=== PATIENT | female | born 1985 | race Hispanic/Latino ===

== ENCOUNTER 2018-06-14 09:33 | Outpatient (CLI) | payer OTHER | END 2018-06-14 09:34 | disposition home or self-care (01) | LOC: LAB 09:33 ==

== ENCOUNTER 2018-07-06 16:35 | Outpatient (CLI) | payer OTHER | END 2018-07-06 16:36 | disposition home or self-care (01) | LOC: RAD 16:35 | DX: N92.0 Excessive and frequent menstruation with regular cycle (principal) ==